=== PATIENT | male | born 1935 | race Two or more races ===

== ENCOUNTER 2022-02-08 12:02 | Observation (INO) ==
[2022-02-08] MEDS ORDERED: SODIUM CHLORIDE 0.9% 1000ML 1,000 ML IV STA (12:19)
[2022-02-08] MEDS ORDERED: SODIUM CHLORIDE 0.9% 500 ML IV ONE (12:39)
[2022-02-08 12:55] LABS: Hematocrit (blood only) 36.4 % (40.1-51.0); Hemoglobin 12.1 g/dl (14.0-18.0); White Blood Count 2.12 K/ul (4.8-10.8)
--- NOTE | 2022-02-08 13:03 | XRay Report ---
XR chest 1V portable HISTORY: Fever COMPARISON: None. FINDINGS: No pneumothorax. No pleural effusions. The heart is normal in size. The upper lung zones ar e clear. There is patchy interstitial thickening at the lung bases. There are low lung volumes. No ev idence for pulmonary edema. IMPRESSION: Bibasilar interstitial thickening which may be due to vascular crowding from the low lung volumes or a low-grade interstitial pneumonitis. ACT 112: Negative or not required by law. Electronically signed by: Christiano Beltran M.D. 02/08/2022 1:01 PM
[2022-02-08 13:15] LABS: Alanine Aminotransferase 7 U/L (7-52); Albumin Globulin Ratio 1.4 (0.9-2); Albumin Level 3.7 gm/dl (3.4-5.0); Alkaline Phosphatase 48 U/L (34-104); Anion Gap 7 (3-11); Aspartate Aminotransferase 14 U/L (13-39); BUN Creatinine Ratio 10.7 (10-20); Bilirubin,Total 0.4 mg/dl (0.2-1.0); Blood Urea Nitrogen 13 mg/dl (6-23); Calcium 8.3 mg/dl (8.5-10.1); Carbon Dioxide 26 mmol/L (21-32); Chloride 103 mmol/L (98-107); Est GFR (African American) 62.9 ml/min; Est GFR (Non-African American) 54.3 ml/min; Globulin 2.6 gm/dl (2.5-4.0); Glucose 103 mg/dl (70-99(Fasting)); Potassium 3.9 mmol/L (3.5-5.1); Sodium 136 mmol/L (136-145); Total Protein 6.3 gm/dl (6.0-8.3)
[2022-02-08 13:18] LABS: Troponin I High Sensitivity 26.8 pg/ml (0-20)
[2022-02-08 13:24] LABS: Influenza A virus by PCR Negative (Neg); Influenza B virus by PCR Negative (Neg); RSV by PCR Negative (Neg)
[2022-02-08 13:40] LABS: Mean Corpuscular Hemoglobin 30.9 pg (25.0-34.0); Mean Corpuscular Hgb Conc 33.2 g/dL (32.0-36.0); Mean Corpuscular Volume 93.1 fL (80.0-100.0); Mean Platelet Volume 9.7 fL (9.4-12.4); Platelet Count 111 K/uL (130-400); RDW Coefficient of Variation 13.2 % (11.5-14.5); RDW Standard Deviation 45.1 fL (36.4-46.3); Red Blood Count 3.91 M/uL (4.63-6.08)
[2022-02-08 14:08] LABS: RBC Morphology Unremarkable
[2022-02-08 14:11] LABS: Basophils # (auto) 0.01 K/uL (0-0.2); Basophils % (auto) 0.5 %; Lymphocytes # (auto) 0.72 K/uL (1.2-3.4); Monocytes # (auto) 0.57 K/uL (0.24-0.82); Monocytes % (auto) 26.9 %; Neutrophils # (auto) 0.82 K/uL (1.4-6.5); Neutrophils % (auto) 38.6 %
[2022-02-08 14:36] LABS: SARS CoV2 RNA(COVID-19) InHosp POSITIVE (Negative)
--- NOTE | 2022-02-08 14:57 | History & Physical Report ---
Date of Service February 08, 2022 Assessment & Plan (1) COVID: Plan: - 2 days of generalized weakness, subjective fevers at home, with known exposure to his who was hospitalized here with COVID. Unable to care for self at home. - He has vaccinated x2 with booster May. - SPO2 >90% on room air, mildly hypertensive, HR 70s. Afebrile here. - Provide symptomatic care: IVF hydration, Tylenol for body aches and fever, antiemetics, Tessalon Perles prn. - CXR with bibasilar interstitial thickening +/- pneumonitis. - CT chest w/o contrast ordered for further eval. - PT/OT to evaluate. - TSH, procal added on to labs. - Monitor pancytopenia with daily CBC. (2) Pancytopenia: Plan: - 2/2 COVID-19 infection, no ported history of immunosuppression. - Repeat CBC daily. (3) Elevated troponin: Plan: - Initial hs Trop 26.8, repeat 26.7. EKG with LBBB which may be chronic, however we do not have any prior records for patient. He is not experiencing any chest pain, shortness of breath, dizziness, lightheadedness, diaphoresis. - Admitted to telemetry unit overnight. - Echo and repeat trop ordered. - Did get in touch with [place] PCP, patient is currently on a statin for high cholesterol, has reported history of pulmonary hypertension and cardiomegaly, however no echoes in their records. LBBB seen on prior EKGs per the report. (4) AFTAB (acute kidney injury): Plan: - Cr 1.21, no baseline labs for comparison, did get in contact with her PCP, no specific notes of CKD. - Will provide IVF and repeat BMP in AM. Suspect at his age there is some degree of CKD, will monitor response to IVF, renal function while he is here to determine an estimated baseline. - Avoid nephrotoxins and renally dose as able. (5) BPH (benign prostatic hyperplasia): Plan: - Continue finasteride 5 mg and doxazosin 2 mg daily. - Bladder scan after voids to monitor for PVR. (6) Hyperlipidemia: Plan: - Continue atorvastatin 20 mg daily. Plan - Med/tele under observtion status. - SCDs and Lovenox for VTE ppx. - Full Code. History of Present Illness Chief Complaint: weakness, COVID-19 infection Primary Care Provider: NO PCP Colt Kaminski is an 86-year-old male with a past medical history significant for BPH and hyperlipidemia, who is presenting today with generalized weakness ongoing for the past 2 days. History collected with the assistance of virtual caustic room attendant, as well as daughter at bedside who does speak Moh[place] and translates for her father. Patient is actually a [place] resident visiting, is Prydeinig-speaking and unable to provide much in the way of past medical history. His was hospitalized at our facility yesterday, 02/07 with COVID-19 infection. He has been feeling generally weak over the past 2 days, specifically in his knees as if they would give out on him, although has not had any falls at home. He has not had any fevers, chest pain, cough, shortness of breath, syncope, presyncope, dizziness, lightheadedness, diaphoresis, abdominal pain, nausea, vomiting, diarrhea. He is doing his best to stay hydrated and to eat. He is vaccinated x2 with Pfizer booster in May 2021. His tested positive for the first time yesterday, and today he is positive.No home tests prior to ED presentation. In ED, he presents tachycardic with HR 102, initially borderline hypotensive 90/50, after IVF@133/59, SPO2 90% on room air, afebrile here. Labs significant for pancytopenia, WBC 2.2 with decreased neutrophil count 0.82, RBC 2.91, Hgb 12.1, PLTs 111. Creatinine 1.21, no baseline labs for reference. Calcium mildly low at 8.3, otherwise no electrolyte abnormalities. Initial hsTrop 26.8, repeat 26.7. COVID-positive. CXR with bibasilar interstitial thickening which may be due to vascular crowding from the low lung volumes or a low-grade interstitial pneumonitis. He will be admitted for symptomatic treatment of his COVID-19 infection, on telemetry unit given his mildly elevated troponin with LBBB seen on EKG with no prior EKGs for reference. Attempts are being made to collect basic PMH. Allergies Allergy/AdvReac Type Severity Reaction Status Date / Time No Known Allergies Allergy Verified 02/08/22 15:43 Home Medications Medication Instructions Recorded Confirmed Type Unknown Antibiotic 1 tab PO DIRECTED 02/08/22 02/08/22 History atorvastatin 20 mg tablet 20 mg PO DAILY 02/08/22 02/08/22 History doxazosin 2 mg PO DAILY 02/08/22 02/08/22 History finasteride 5 mg tablet 5 mg PO DAILY 02/08/22 02/08/22 History Past Med/Surg History Medical History (Updated 02/08/22 @ 16:10 by Radha Frazier PA-C) BPH (benign prostatic hyperplasia) Cardiomegaly COVID February 2022 Hyperlipidemia LBBB (left bundle branch block) Surgical History (Updated 02/08/22 @ 15:46 by Radha Frazier PA-C) Surgical history unknown Family History (Updated 02/08/22 @ 15:47 by Radha Frazier PA-C) Other Family history non-contributory Social History Smoking Status: Never smoker Feels Safe at Home: Yes Review of Systems Review of Systems: Constitutional: Generalized weakness x2 days without fall; no fever/chills, fatigue, myalgias, anorexia, night sweats Eyes: No diplopia, no worsening or blurred vision ENT: normal hearing, no trouble swallowing Respiratory: No cough, sputum, dyspnea at rest or on exertion Cardiovascular: No chest pain, tightness or palpitations Abdomen: No pain, nausea, vomiting, diarrhea or constipation : Denies dysuria, hematuria, increased urgency/frequency, urinary retention Musculoskeletal: No joint pain, calf pain, swelling Neurologic: No weakness, numbness/tingling, or balance problems Psychiatric: No anxiety or depression Skin: No rash or itch Physical Exam Physical Exam: General: awake, alert, no apparent distress Head: Normocephalic, atraumatic ENT: PERRL, EOMI, no pharyngeal exudate, mucous membranes moist Chest: Clear to auscultation, on room air, no adventitious breath sounds Cardiac: Regular rate and rhythm, no murmur, no JVD, normal peripheral pulses, good capillary refill Abdominal: NABS x 4 quadrants, soft, nontender to palpation, no rebound, guarding or tenderness Extremities: Normal inspection, no peripheral edema or erythema, calfs nontender to palpation Psych: Normal mood and affect Neuro: AAO x 3, strength intact bilaterally and rated 5/5, no motor deficits, speech is clear, no peripheral sensory deficits Skin: no rash or erythema Results & Data Results & Data ([facility]) Vital Signs (Past 12 Hours) Vital Signs Temp Pulse Resp BP BP Pulse Ox O2 Del Method 02/08/22 13:23 19 133/59 L 91 Room Air 02/08/22 12:06 37.0 C 102 H 18 92/58 L 95 Room Air Laboratory Results Abnormal lab results 02/08/22 02/08/22 02/08/22 Range/Units 12:36 12:36 12:38 WBC 2.12 L (4.8-10.8) K/ul RBC 3.91 L (4.63-6.08) M/uL Hgb 12.1 L (14.0-18.0) g/dl Hct 36.4 L (40.1-51.0) % Plt Count 111 L (130-400) K/uL Neut # (Auto) 0.82 L* (1.4-6.5) K/uL Lymph # (Auto) 0.72 L (1.2-3.4) K/uL Glucose 103 H (70-99(Fasting)) mg/dl Calcium 8.3 L (8.5-10.1) mg/dl Troponin I High Sens 26.8 H (0-20) pg/ml SARS-CoV-2 (PCR) POSITIVE A* (Negative) 02/08/22 Range/Units 14:23 WBC (4.8-10.8) K/ul RBC (4.63-6.08) M/uL Hgb (14.0-18.0) g/dl Hct (40.1-51.0) % Plt Count (130-400) K/uL Neut # (Auto) (1.4-6.5) K/uL Lymph # (Auto) (1.2-3.4) K/uL Glucose (70-99(Fasting)) mg/dl Calcium (8.5-10.1) mg/dl Troponin I High Sens 26.7 H (0-20) pg/ml SARS-CoV-2 (PCR) (Negative) Diagnostic Findings Chest X-Ray 02/08/22 12:19 XR chest 1V portable HISTORY: Fever COMPARISON: None. FINDINGS: No pneumothorax. No pleural effusions. The heart is normal in size. The upper lung zones are clear. There is patchy interstitial thickening at the lung bases. There are low lung volumes. No evidence for pulmonary edema. IMPRESSION: Bibasilar interstitial thickening which may be due to vascular crowding from the low lung volumes or a low-grade interstitial pneumonitis. ACT 112: Negative or not required by law. Electronically signed by: Christiano Beltran M.D. 02/08/2022 1:01 PM ECG Additional Comments: Normal sinus rhythm Left bundle branch block Abnormal ECG No previous ECGs available. No ST segment or T wave changes noted. Code Status & VTE Plan Code Status Full code. Supervising Physician Co-Signing Physician Notes Patient seen and examined, chart reviewed, case discussed with Radha Frazier PA-C and I agree with the assessment and plan as above except as otherwise noted. Labs and images reviewed. Bhupinder is an 86-year-old male who denies any past medical history who presents with weakness, fatigue and COVID-positive. His is currently admitted also with COVID. With subsequent patient's heart rate is regular, lungs are grossly clear with nonlabored breathing on room air, patient is nondistressed. Hearing and vision intact, pupils exclusively Prydeinig-speaking. Seen at the bedside with daughter present. He is a poor historian of medications, collateral obtained from his PCPs office in [facility] Weakness 2/2 COVID-19 pneumonia - 2 days of sx. No cough, shortness of breath, chest pain, chest pressure, N/V/D. - Vaccinated/boosted, last booster May 2022. Is not hypoxic, does not meet criteria for dexamethasone or remdesivir at this time CXR: Bibasilar interstitial thickening,? Interstitial pneumonitis Sodium normal, creatinine 1.21 TSH pending Troponin elevation ? Demand as discussed below Patient is neutropenic and thrombocytopenic, hemoglobin 12.1. No history of thrombocytopenia/neutropenia per patient. Differential includes viral suppression, trend daily COVID-positive 02/08/2022 CTchest noncontrast pending PT/OT, CM consulted Procalcitonin pending Left bundle branch block, mild troponin elevation EKG with left bundle branch block, QRS 122 - Per Pts [place] Provider: "Recent EKG August w/ LBBB QRs 120-125, LBBB has been present on prior EKGs and is not new. Medications: Atorvastatin 20mg, Finasteride 5mg, Doxazosin 2mg, Diclofinac 75mg Dx: HLD, Cardiomegaly, Prostatomegaly, pHTN - Echo ordered by PCP, no results and was never completed. No hx of OK/CAD." High-sensitivity troponin 26.8 with repeat 26.7 Clinically without chest pain. No history of syncope. TTE pending. Denies medical/cardiac history. Lipid panel, A1c pending Monitor on telemetry pending cardiac eval above. - Mg pending Neutropenia, leukopenia, anemia Hemoglobin 12.1 Neutropenic precautions No history, differential includes viral suppression in setting of acute COVID Trend BPH - Bladder scan PRN - Continue doxazosin, finasteride PG Care Time/CCT Total # of Minutes Spent Total Time Spent with Patient: Total time spent is greater than 50% in coordination of care (as documented) at patient's floor/unit and/or counseling patient: Coding Level of Care Code INT OBSERVATION CARE 70M LVL 3 Diagnoses COVID U07.1 Pancytopenia D61.818 Elevated troponin R77.8 AFTAB (acute kidney injury) N17.9 BPH (benign prostatic hyperplasia) N40.0 Hyperlipidemia E78.5
--- NOTE | 2022-02-08 16:57 | CT Scan Report ---
CT chest diagnostic wo con CT DOSE: 325.52 mGycm HISTORY: fever, COVID-19, borderline hypoxic TECHNIQUE: Multiaxial CT images of the chest were performed without contrast. A dose lowering techni que was utilized adhering to the principles of ALARA. COMPARISON: None. FINDINGS: The central airways are patent. No pneumothorax. Mild respiratory motion artifact. Mild dep endent changes noted at the lung bases. Otherwise, no focal lung consolidations to suggest pneumonia. No evidence for pulmonary edema. There are few scattered subcentimeter indeterminate pulmonary nodul es with the largest in the left upper lobe on image 69 measuring 4 mm. No suspicious lytic or blastic osseous lesions. Mild bilateral gynecomastia most pronounced on the left. Limited views of the upper abdomen demonstrate a normal liver, spleen, and adrenal glands. Normal esophagus. There appear to be trace bilateral pleural effusions. No pericardial effusion. The heart is mildly enlarged. Normal sid iber thoracic aorta. IMPRESSION: 1. No focal lung consolidations to suggest pneumonia. 2. Trace bilateral pleural effusions. 3. Mild cardiomegaly. 4. A few scattered subcentimeter indeterminate pulmonary nodules measure up to 4 mm. Please refer to below summary of Fleischner criteria recommendations for follow-up of incidental CT n odules (Aditya Reardon, Guidelines for management of small pulmonary nodules detected on CT scans: A sta tement from the Fleischner Society, Radiology 237: [phone].) SOLID NODULES Solitary nodule size: <6 mm * Low risk patients: no follow-up needed * high risk patients: optional CT at 12 months Solitary nodule size: 6-8 mm * Low risk patients: follow-up at 6-12 months, then consider further follow-up at 18-24 months * high risk patients: initial follow-up CT at 6-12 months and then at 18-24 months if no change Solitary nodule size: >8 mm * either low or high risk patients - consider follow-up CT at 3 months, and/or CT-PET, and/or biopsy Multiple nodules size: <6 mm * Low risk patients: no routine follow-up * high risk patients: optional CT at 12 months Multiple nodules size: 6-8 mm * Low risk patients: follow-up at 3-6 months, then consider further follow-up at 18-24 months * high risk patients: follow-up at 3-6 months, then at 18-24 months if no change Multiple nodules size: >8 mm * Low risk patients: follow-up at 3-6 months, then consider further follow-up at 18-24 months * high risk patients: follow-up at 3-6 months, then at 18-24 months if no change Note: newly detected indeterminate nodule in persons 35 years of age or older. * Low risk patients: minimal or absent history of smoking and/or other known risk factors * high risk patients: history of smoking or of other known risk factors (e.g. first degree relative with lung cancer, or exposure to asbestos, radon, uranium) * if a nodule up to 8 mm is partly solid or is ground glass further follow-up is required after 24 m onths to exclude possible slow growing adenocarcinoma (MARK) SUBSOLID NODULES Solitary pure ground-glass nodule * nodule size <6 mm - no CT follow-up required * nodule size >=6 mm - follow-up CT at 6-12 months, then every 2 years until 5 years Solitary part-solid nodule * nodule size <6 mm - no CT follow-up required * nodule size >=6 mm - follow-up CT at 3-6 months. If unchanged, and solid component remains <6 mm, then annual follow-up for 5 years Multiple subsolid nodules * nodule size <6 mm - follow-up CT at 3-6 months, consider further follow-up at 2 and 4 years if sta ble * nodule size >=6 mm - follow-up CT at 3-6 months, subsequent management based on the most suspiciou s nodule(s) ACT 112: Negative or not required by law. Electronically signed by: Christiano Beltran M.D. 02/08/2022 4:55 PM
[2022-02-08 17:25] LABS: Appearance Urine Clear (Clear); Bacteria Urine Automated Negative (Negative); Bilirubin Urine Negative (Negative); Blood Urine 2+ (Negative); Color Urine Yellow; Glucose Urine UA Negative (Negative); Ketones Urine Negative (Negative); Leukocyte Esterase Urine Negative (Negative); Nitrite Urine Negative (Negative); Protein Urine Negative (Negative); RBC Urine Automated 0-4 /hpf (0-4); Specific Gravity Urine 1.011 (1.000-1.030); Urobilinogen Urine Negative (Negative)
[2022-02-08] MEDS ORDERED: ACETAMINOPHEN 325 MG TAB PO PRN (19:30)
[2022-02-08] MEDS ORDERED: POLYETHYLENE (MIRALAX) 17 GM PACK PO PRN (19:30)
[2022-02-08 20:22] LABS: Magnesium 1.8 mg/dl (1.7-2.4)
[2022-02-08] MEDS: ENOXAPARIN INJ 40 MG/0.4 ML SYR SQ SCH (20:33)
[2022-02-08] MEDS: Patient's HEIGHT &/or WEIGHT Needed SCH ×2 (21:04→21:07)
[2022-02-09] MEDS: Patient's HEIGHT &/or WEIGHT Needed SCH ×7 (00:53→16:32)
[2022-02-09 05:53] LABS: Basophils # (auto) 0.01 K/uL (0-0.2); Basophils % (auto) 0.3 %; Hematocrit (blood only) 37.6 % (40.1-51.0); Hemoglobin 12.7 g/dl (14.0-18.0); Immature Granulocytes # (auto) 0.01 K/uL (0.00-0.02); Immature Granulocytes % (auto) 0.3 %; Lymphocytes # (auto) 0.98 K/uL (1.2-3.4); Lymphocytes % (auto) 32.5 %; Mean Platelet Volume 10.1 fL (9.4-12.4); Monocytes # (auto) 0.58 K/uL (0.24-0.82); Monocytes % (auto) 19.2 %; Neutrophils # (auto) 1.44 K/uL (1.4-6.5); Neutrophils % (auto) 47.7 %; Platelet Count 107 K/uL (130-400); White Blood Count 3.02 K/ul (4.8-10.8)
[2022-02-09 06:06] LABS: Mean Corpuscular Hgb Conc 33.8 g/dL (32.0-36.0); Mean Corpuscular Volume 91.7 fL (80.0-100.0); RDW Coefficient of Variation 13.1 % (11.5-14.5); RDW Standard Deviation 43.8 fL (36.4-46.3)
[2022-02-09 06:12] LABS: BUN Creatinine Ratio 12.2 (10-20); Chol HDL Ratio 3.3 (0-5); Creatinine Clr Calc Pharmacy 55.5 ml/min; Est GFR (African American) 81.2 ml/min; Potassium 4.1 mmol/L (3.5-5.1)
--- NOTE | 2022-02-09 09:17 | Electrocardiogram Report ---
Test Reason : Blood Pressure : / mmHG Vent. Rate : 073 BPM Atrial Rate : 073 BPM P-R Int : 132 ms QRS Dur : 122 ms QT Int : 408 ms P-R-T Axes : 052 -29 097 degrees QTc Int : 449 ms Normal sinus rhythm Left bundle branch block Abnormal ECG No previous ECGs available Confirmed by Brannon Sneed ([id number]) on 02/09/2022 9:17:45 AM Referred By: Confirmed By:Brannon Sneed
[2022-02-09] MEDS: ATORVASTATIN 20 MG TAB PO SCH (09:45)
[2022-02-09] MEDS: DOXAZosin MESYLATE TAB 2 MG TAB PO SCH (09:45)
[2022-02-09] MEDS: FINASTERIDE 5 MG TAB PO SCH (09:46)
[2022-02-09] MEDS: ENOXAPARIN INJ 40 MG/0.4 ML SYR SQ SCH ×2 (09:46→21:18)
--- NOTE | 2022-02-09 17:09 | Emergency Department Note ---
Impression & Plan COVID, Pancytopenia, Elevated troponin, LBBB (left bundle branch block) ED Provider Note CHIEF COMPLAINT: Fever HISTORY OF PRESENT ILLNESS: This 86 yo male patient presents to the emergency de partment with increase sleeping, fever. Pt was exposed to COVID 19 through a family member, trying to help care for his after she had surgery recently. was readmitted to the hospital and diagnosed with COVID-19 yesterday. Daughter noticed a decrease in his mental status, he has not drink and has been sleeping most of the day. He does have an occasional cough and she has noticed that he felt warm. He has not taken any medications for his symptoms. His been no vomiting or diarrhea. The patient recently moved to our area and daughter states she does not know much about his past medical history. She does not believe he takes any medications. Patient is Beninese-speaking somnolent but awake, answers REVIEW OF SYSTEMS: A review of systems was performed with positives and pert inent negatives listed in the history of present illness. 10 systems were reviewed and are otherwise negative. ALLERGIES: see below MEDICATIONS: see below PMH: see below SOCIAL HISTORY: see below DDx: Viral syndrome, COVID, influenza, pneumonia, influenza, meningitis, urinary tract infection, sepsis, bacteremia, as well as other pathologies. PHYSICAL EXAM: Vital signs reviewed. General: Somewhat ill-appearing 86-year-old male, in no significant distress. HEENT: No scleral icterus, PERRLA, neck supple. Dry mucous membranes. Cardiovascular: Regular rate and rhythm, no extra sounds. Pulmonary: Clear to auscultation bilaterally, normal work of breathing. Abdomen: Soft, nontender, nondistended, positive bowel sounds. Musculoskeletal: Atraumatic, no peripheral edema. Neurologic: Patient is somnolent but awake. He does answer questions through cyber systems operations specialist. Follows commands. Skin: Warm, dry, no rash EMERGENCY DEPARTMENT COURSE/MDM: This patient was evaluated and appeared to be in no significant distress. IV access was obtained and laboratory work was drawn. Patient was placed on the nuclear monitoring technician and noted to be in a normal sinus rhythm. Laboratory work reveals a leukopenia with neutropenia. The patient was hydrated with normal saline solution. Urinalysis was obtained and was negative. He has tested positive for COVID-19, which I feel is likely responsible for his laboratory derangements. Patient's EKG reveals a left bundle branch block for which we have no previous EKGs to compare.. Daughter is concerned that he has limited care at home, particularly because his is ill and family is having difficulty themselves. The patient will be evaluated by the hospitalist service for further management. MONITORING: An order for cardiac monitoring was placed and the patient is noted to be in a normal sinus rhythm at 74 beats per minute. RADIOLOGY: See below EKG: Normal sinus rhythm at 73 bpm, left bundle branch block. QTc is 449. No PVC, no PAC. Normal ST segments. No previous for comparison. DISPOSITION: Admission Past Med/Surg History Medical History (Updated 02/16/22 @ 23:20 by Radha Meade MD) BPH (benign prostatic hyperplasia) Cardiomegaly COVID February 2022 Hyperlipidemia LBBB (left bundle branch block) Surgical History (Updated 02/08/22 @ 15:46 by Radha Frazier PA-C) Surgical history unknown Family History (Updated 02/08/22 @ 15:47 by Radha Frazier PA-C) Other Family history non-contributory Social History Smoking Status: Former smoker Second Hand Exposure: No; Hx Alcohol Use: No Hx Substance Use: No Preferred Language: Beninese Communication Ability: Impaired Communication Tools: Picture Board and Panel Sewer Cards Air Carrier Operations Inspector Required: Yes Beliefs That Will Affect Care: None Current Living Situation: Spouse Feels Safe at Home: Yes Assistive Devices: None Allergies Allergies Allergy/AdvReac Type Severity Reaction Status Date / Time No Known Allergies Allergy Verified 02/08/22 15:43 Home Meds Home Medications Medication Instructions Recorded Confirmed atorvastatin 20 mg tablet 20 mg PO DAILY 02/08/22 02/08/22 doxazosin 2 mg PO DAILY 02/08/22 02/08/22 finasteride 5 mg tablet 5 mg PO DAILY 02/08/22 02/08/22 Results & Data (ED) Home Medications Current Medication List: was personally reviewed by me Laboratory Data Attestation: I reviewed the patient's lab results. Result diagrams: 02/10/22 07:39 02/10/22 07:39 Lab Results 02/08/22 02/08/22 02/08/22 Range/Units 12:36 12:36 12:36 WBC 2.12 L (4.8-10.8) K/ul RBC 3.91 L (4.63-6.08) M/uL Hgb 12.1 L (14.0-18.0) g/dl Hct 36.4 L (40.1-51.0) % MCV 93.1 (80.0-100.0) fL MCH 30.9 (25.0-34.0) pg MCHC 33.2 (32.0-36.0) g/dL RDW Std Deviation 45.1 (36.4-46.3) fL RDW Coeff of Jeanette 13.2 (11.5-14.5) % Plt Count 111 L (130-400) K/uL MPV 9.7 (9.4-12.4) fL Immature Gran % (Auto) 0.0 % Neut % (Auto) 38.6 % Lymph % (Auto) 34.0 % Moffat % (Auto) 26.9 % Eos % (Auto) 0.0 % Baso % (Auto) 0.5 % Neut # (Auto) 0.82 L* (1.4-6.5) K/uL Lymph # (Auto) 0.72 L (1.2-3.4) K/uL Moffat # (Auto) 0.57 (0.24-0.82) K/uL Eos # (Auto) 0.00 (0-0.50) K/uL Baso # (Auto) 0.01 (0-0.2) K/uL Immature Gran # (Auto) 0.00 (0.00-0.02) K/uL RBC Morphology Unremarkable Sodium 136 (136-145) mmol/L Potassium 3.9 (3.5-5.1) mmol/L Chloride 103 (98-107) mmol/L Carbon Dioxide 26 (21-32) mmol/L Anion Gap 7 (3-11) BUN 13 (6-23) mg/dl Creatinine 1.21 (0.6-1.4) mg/dl Est Cr Clr Drug Dosing Not Reportable Est GFR ( Amer) 62.9 ml/min Est GFR (Non-Af Amer) 54.3 ml/min BUN/Creatinine Ratio 10.7 (10-20) Glucose 103 H (70-99(Fasting)) mg/dl Estimat Average Glucose mg/dl Hemoglobin A1c (4.5-5.6) % Lactate 0.9 (0.4-2.0) mmol/L Calcium 8.3 L (8.5-10.1) mg/dl Magnesium 1.8 (1.7-2.4) mg/dl Total Bilirubin 0.4 (0.2-1.0) mg/dl AST 14 (13-39) U/L ALT 7 (7-52) U/L Alkaline Phosphatase 48 (34-104) U/L Troponin I High Sens 26.8 H (0-20) pg/ml Total Protein 6.3 (6.0-8.3) gm/dl Albumin 3.7 (3.4-5.0) gm/dl Globulin 2.6 (2.5-4.0) gm/dl Albumin/Globulin Ratio 1.4 (0.9-2) Procalcitonin (0-0.5) ng/ml TSH (0.300-4.500) uIu/ml SARS-CoV-2 (PCR) (Negative) Influenza Type A (PCR) (Neg) Influenza Type B (PCR) (Neg) RSV (RT-PCR) (Neg) 02/08/22 02/08/22 02/08/22 Range/Units 12:36 12:36 12:38 WBC (4.8-10.8) K/ul RBC (4.63-6.08) M/uL Hgb (14.0-18.0) g/dl Hct (40.1-51.0) % MCV (80.0-100.0) fL MCH (25.0-34.0) pg MCHC (32.0-36.0) g/dL RDW Std Deviation (36.4-46.3) fL RDW Coeff of Jeanette (11.5-14.5) % Plt Count (130-400) K/uL MPV (9.4-12.4) fL Immature Gran % (Auto) % Neut % (Auto) % Lymph % (Auto) % Moffat % (Auto) % Eos % (Auto) % Baso % (Auto) % Neut # (Auto) (1.4-6.5) K/uL Lymph # (Auto) (1.2-3.4) K/uL Moffat # (Auto) (0.24-0.82) K/uL Eos # (Auto) (0-0.50) K/uL Baso # (Auto) (0-0.2) K/uL Immature Gran # (Auto) (0.00-0.02) K/uL RBC Morphology Sodium (136-145) mmol/L Potassium (3.5-5.1) mmol/L Chloride (98-107) mmol/L Carbon Dioxide (21-32) mmol/L Anion Gap (3-11) BUN (6-23) mg/dl Creatinine (0.6-1.4) mg/dl Est Cr Clr Drug Dosing Est GFR ( Amer) ml/min Est GFR (Non-Af Amer) ml/min BUN/Creatinine Ratio (10-20) Glucose (70-99(Fasting)) mg/dl Estimat Average Glucose mg/dl Hemoglobin A1c (4.5-5.6) % Lactate (0.4-2.0) mmol/L Calcium (8.5-10.1) mg/dl Magnesium (1.7-2.4) mg/dl Total Bilirubin (0.2-1.0) mg/dl AST (13-39) U/L ALT (7-52) U/L Alkaline Phosphatase (34-104) U/L Troponin I High Sens (0-20) pg/ml Total Protein (6.0-8.3) gm/dl Albumin (3.4-5.0) gm/dl Globulin (2.5-4.0) gm/dl Albumin/Globulin Ratio (0.9-2) Procalcitonin < 0.05 (0-0.5) ng/ml TSH 0.852 (0.300-4.500) uIu/ml SARS-CoV-2 (PCR) POSITIVE A* (Negative) Influenza Type A (PCR) Negative (Neg) Influenza Type B (PCR) Negative (Neg) RSV (RT-PCR) Negative (Neg) 02/08/22 02/08/22 Range/Units 12:43 14:23 WBC (4.8-10.8) K/ul RBC (4.63-6.08) M/uL Hgb (14.0-18.0) g/dl Hct (40.1-51.0) % MCV (80.0-100.0) fL MCH (25.0-34.0) pg MCHC (32.0-36.0) g/dL RDW Std Deviation (36.4-46.3) fL RDW Coeff of Jeanette (11.5-14.5) % Plt Count (130-400) K/uL MPV (9.4-12.4) fL Immature Gran % (Auto) % Neut % (Auto) % Lymph % (Auto) % Moffat % (Auto) % Eos % (Auto) % Baso % (Auto) % Neut # (Auto) (1.4-6.5) K/uL Lymph # (Auto) (1.2-3.4) K/uL Moffat # (Auto) (0.24-0.82) K/uL Eos # (Auto) (0-0.50) K/uL Baso # (Auto) (0-0.2) K/uL Immature Gran # (Auto) (0.00-0.02) K/uL RBC Morphology Sodium (136-145) mmol/L Potassium (3.5-5.1) mmol/L Chloride (98-107) mmol/L Carbon Dioxide (21-32) mmol/L Anion Gap (3-11) BUN (6-23) mg/dl Creatinine (0.6-1.4) mg/dl Est Cr Clr Drug Dosing Est GFR ( Amer) ml/min Est GFR (Non-Af Amer) ml/min BUN/Creatinine Ratio (10-20) Glucose (70-99(Fasting)) mg/dl Estimat Average Glucose 120 mg/dl Hemoglobin A1c 5.8 H (4.5-5.6) % Lactate (0.4-2.0) mmol/L Calcium (8.5-10.1) mg/dl Magnesium (1.7-2.4) mg/dl Total Bilirubin (0.2-1.0) mg/dl AST (13-39) U/L ALT (7-52) U/L Alkaline Phosphatase (34-104) U/L Troponin I High Sens 26.7 H (0-20) pg/ml Total Protein (6.0-8.3) gm/dl Albumin (3.4-5.0) gm/dl Globulin (2.5-4.0) gm/dl Albumin/Globulin Ratio (0.9-2) Procalcitonin (0-0.5) ng/ml TSH (0.300-4.500) uIu/ml SARS-CoV-2 (PCR) (Negative) Influenza Type A (PCR) (Neg) Influenza Type B (PCR) (Neg) RSV (RT-PCR) (Neg) Administered Medications Discontinued Medications Atorvastatin Calcium (Atorvastatin 20 Mg Tab) 20 mg PO DAILY LUIS Stop: 03/11/22 08:59 Last Admin: 02/10/22 07:43 Dose: 20 mg Documented By: Admin: 02/09/22 09:45 Dose: 20 mg Documented By: ROWENA Doxazosin Mesylate (Doxazosin Mesylate Tab 2 Mg Tab) 2 mg PO DAILY LUIS Stop: 03/11/22 08:59 Last Admin: 02/10/22 07:43 Dose: 2 mg Documented By: Admin: 02/09/22 09:45 Dose: 2 mg Documented By: ROWENA Enoxaparin Sodium (Enoxaparin Inj 40 Mg/0.4 Ml Syr) 40 mg SQ Q12H LUIS Stop: 03/10/22 19:59 Last Admin: 02/10/22 07:41 Dose: 40 mg Documented By: Admin: 02/09/22 21:18 Dose: 40 mg Documented By: Admin: 02/09/22 09:46 Dose: 40 mg Documented By: Admin: 02/08/22 20:33 Dose: 40 mg Documented By: SHANICE Finasteride (Finasteride 5 Mg Tab) 5 mg PO DAILY LUIS Stop: 03/11/22 08:59 Last Admin: 02/10/22 07:43 Dose: 5 mg Documented By: Admin: 02/09/22 09:46 Dose: 5 mg Documented By: ROWENA Sodium Chloride (Nss 1000ml) 1,000 mls @ 125 mls/hr IV .Q8H STA Stop: 02/08/22 20:18 Last Admin: 02/08/22 19:54 Dose: Not Given Documented By: SHANICE Sodium Chloride (Nss) 500 mls @ 999 mls/hr IV .Q31M ONE Stop: 02/08/22 13:09 Last Infusion: 02/08/22 13:35 Dose: 0 mls/hr Documented By: Admin: 02/08/22 12:56 Dose: 999 mls/hr Documented By: ELIZABETH Miscellaneous (Patient's Height &/Or Weight Needed) 1 each N/A Q2H LUIS Stop: 03/10/22 19:44 Last Admin: 02/09/22 16:32 Dose: Not Given Documented By: Admin: 02/09/22 16:32 Dose: Not Given Documented By: Admin: 02/09/22 16:32 Dose: Not Given Documented By: Admin: 02/09/22 16:32 Dose: Not Given Documented By: Admin: 02/09/22 09:46 Dose: Not Given Documented By: Admin: 02/09/22 09:45 Dose: 1 each Documented By: Admin: 02/09/22 05:30 Dose: Not Given Documented By: Admin: 02/09/22 04:04 Dose: Not Given Documented By: Admin: 02/09/22 02:38 Dose: Not Given Documented By: Admin: 02/09/22 00:53 Dose: Not Given Documented By: Admin: 02/08/22 21:07 Dose: 1 each Documented By: Admin: 02/08/22 21:04 Dose: Not Given Documented By: Discharge Plan Visit Data Chief Complaint: Fever Stated Complaint: FEVER,COVID EXPOSURE ED Provider: Radha Meade Discharge Problem: COVID, Pancytopenia, Elevated troponin, LBBB (left bundle branch block) Patient Disposition: Admitted As Inpatient Discharge Instructions Interventions: ED Discharge Assessment Last Done: 02/08/22 17:38
--- NOTE | 2022-02-09 20:55 | Hospitalist Progress Note ---
Date of Service February 09, 2022 Assessment & Plan (1) COVID: Plan: Day #3 of his illness. Most symptoms improved today. No hypoxia, no respiratory symptoms. He has vaccinated x2 with booster May 2021. No indication at this time for Remdesivir or Dexamethasone. Symptomatic care. Await echo. Cont airborne precautions. (2) Pancytopenia: Plan: 2nd COVID-19 infection. Typically self-limiting. Daily CBC while here. (3) Elevated troponin: Plan: Admission attending did contact his PCP in [place]. Per his PCP in [place] -- currently on a statin for high cholesterol; history of pulmonary hypertension and cardiomegaly; no h/o CAD. PCP denies seeing an echo in his chart there. LBBB seen on old EKGs which is reassuring this is NOT acute. Await echo here. (4) AFTAB (acute kidney injury): Plan: Improved. 2nd volume depletion. Can stop IV fluids. Diet as tolerated. (5) BPH (benign prostatic hyperplasia): Plan: Continue finasteride 5 mg and doxazosin 2 mg daily. (6) Hyperlipidemia: Plan: Continue atorvastatin 20 mg daily. Plan DVT proph - lovenox BID Dr Oneil from our hospitalist team is caring for the patient's who remains on our 3rd floor likely d/c home tomorrow if echo is wnl Admission and Anticipated Discharge Date Admission Date: February 08, 2022 Subjective via supervisor pipe joints -- patient denies ALL complaints including dizziness, headache, nausea, emesis, cough, dyspnea, weakness/fatigue, fevers/chills he states his is in the hospital and inquires about her has been in [place] x 2 weeks visiting his daughter he lives in [facility] denies ANY h/o CAD / heart disease denies ANY exertional CP or dyspnea at baseline Review of Systems Review of Systems: gen - no fevers/chills; ate well today cv - no chest pain, no orthopnea pulm - no cough or congestion GI - no pain Physical Exam Physical Exam: gen - NAD, pleasant ent - hearing impaired; MMM neck - no JVD heart - RRR, s1 s2, no murmur lungs - CTA b/l abd - soft NT ND BS+ ext - no edema, pulses 2+ b/l Results & Data Results & Data ([facility]) Vital Signs (Past 12 Hours) Vital Signs Temp Pulse Pulse Resp BP Pulse Ox O2 Del Method 02/09/22 14:53 72 02/09/22 11:36 36.4 C L 71 18 116/67 96 Room Air Laboratory Results pancytopenia (mild) WBC 2 BMP wnl echo pending.... PG Care Time/CCT Total # of Minutes Spent Total Time Spent with Patient: Total time spent is greater than 50% in coordination of care (as documented) at patient's floor/unit and/or counseling patient: Coding Level of Care Code 15469 Subseq Hosp Care Lvl 2 Diagnoses COVID U07.1 Pancytopenia D61.818 Elevated troponin R77.8 AFTAB (acute kidney injury) N17.9 BPH (benign prostatic hyperplasia) N40.0 Hyperlipidemia E78.5
[2022-02-10] MEDS: ENOXAPARIN INJ 40 MG/0.4 ML SYR SQ SCH (07:41)
[2022-02-10] MEDS: DOXAZosin MESYLATE TAB 2 MG TAB PO SCH (07:43)
[2022-02-10] MEDS: FINASTERIDE 5 MG TAB PO SCH (07:43)
[2022-02-10] MEDS: ATORVASTATIN 20 MG TAB PO SCH (07:43)
[2022-02-10 08:23] LABS: Estimated Average Glucose 120 mg/dl; Hemoglobin A1C 5.8 % (4.5-5.6)
[2022-02-10 08:23] LABS: Hematocrit (blood only) 38.6 % (40.1-51.0); Hemoglobin 12.8 g/dl (14.0-18.0); Mean Platelet Volume 10.2 fL (9.4-12.4); Platelet Count 112 K/uL (130-400); White Blood Count 2.04 K/ul (4.8-10.8)
[2022-02-10 08:51] LABS: BUN Creatinine Ratio 14.7 (10-20); Calcium 8.3 mg/dl (8.5-10.1); Creatinine Clr Calc Pharmacy 53.2 ml/min; Est GFR (African American) 77.3 ml/min; Est GFR (Non-African American) 66.7 ml/min; Potassium 3.8 mmol/L (3.5-5.1)
[2022-02-10 10:00] LABS: Basophils # (auto) 0.02 K/uL (0-0.2); Eosinophils # (auto) 0.01 K/uL (0-0.50); Eosinophils % (auto) 0.5 %; Lymphocytes # (auto) 1.22 K/uL (1.2-3.4); Lymphocytes % (auto) 59.8 %; Mean Corpuscular Hemoglobin 30.4 pg (25.0-34.0); Mean Corpuscular Hgb Conc 33.2 g/dL (32.0-36.0); Mean Corpuscular Volume 91.7 fL (80.0-100.0); Monocytes # (auto) 0.32 K/uL (0.24-0.82); Monocytes % (auto) 15.7 %; Neutrophils # (auto) 0.47 K/uL (1.4-6.5); RDW Standard Deviation 43.6 fL (36.4-46.3); Red Blood Count 4.21 M/uL (4.63-6.08)
--- NOTE | 2022-02-10 13:30 | XCELERA ---
[id number]
--- NOTE | 2022-02-10 17:59 | Discharge Summary ---
Date of Service date of admission - February 08, 2022 date of discharge - February 10, 2022 Admission HPI Per Admitting Provider Colt Kaminski is an 86-year-old male with a past medical history significant for BPH and hyperlipidemia, who is presenting today with generalized weakness ongoing for the past 2 days. History collected with the assistance of virtual paper mill manager, as well as daughter at bedside who does speak [place]ian and translates for her father. Patient is actually a [place] resident visiting, is Azeri-speaking and unable to provide much in the way of past medical history. His was hospitalized at our facility yesterday, 02/07 with COVID-19 infection. He has been feeling generally weak over the past 2 days, specifically in his knees as if they would give out on him, although has not had any falls at home. He has not had any fevers, chest pain, cough, shortness of breath, syncope, presyncope, dizziness, lightheadedness, diaphoresis, abdominal pain, nausea, vomiting, diarrhea. He is doing his best to stay hydrated and to eat. He is vaccinated x2 with Pfizer booster in May 2021. His tested positive for the first time yesterday, and today he is positive.No home tests prior to ED presentation. In ED, he presents tachycardic with HR 102, initially borderline hypotensive 90/50, after IVF@133/59, SPO2 90% on room air, afebrile here. Labs significant for pancytopenia, WBC 2.2 with decreased neutrophil count 0.82, RBC 2.91, Hgb 12.1, PLTs 111. Creatinine 1.21, no baseline labs for reference. Calcium mildly low at 8.3, otherwise no electrolyte abnormalities. Initial hsTrop 26.8, repeat 26.7. COVID-positive. CXR with bibasilar interstitial thickening which may be due to vascular crowding from the low lung volumes or a low-grade interstitial pneumonitis. He will be admitted for symptomatic treatment of his COVID-19 infection, on telemetry unit given his mildly elevated troponin with LBBB seen on EKG with no prior EKGs for reference. Attempts are being made to collect basic PMH. Principal Diagnosis 1. COVID-19 infection 2. Leukopenia 2nd to COVID-19 3. Thrombocytopenia 2nd to COVID-19 4. LBBB - chronic, normal echocardiogram Discharge Exam gen - NAD, pleasant ent - hearing impaired; MMM neck - no JVD heart - RRR, s1 s2, no murmur lungs - CTA b/l abd - soft NT ND BS+ ext - no edema, pulses 2+ b/l Discharge Data Allergies Allergy/AdvReac Type Severity Reaction Status Date / Time No Known Allergies Allergy Verified 02/08/22 15:43 Procedures Performed Echocardiogram - * EF 60-65% * mild LVH * septal motion consistent with bundle branch block * no regional wall motion abnormalities * no significant valvular abnormalities Ordered Studies Chest X-Ray 02/08/22 12:19 XR chest 1V portable HISTORY: Fever COMPARISON: None. FINDINGS: No pneumothorax. No pleural effusions. The heart is normal in size. The upper lung zones are clear. There is patchy interstitial thickening at the lung bases. There are low lung volumes. No evidence for pulmonary edema. IMPRESSION: Bibasilar interstitial thickening which may be due to vascular crowding from the low lung volumes or a low-grade interstitial pneumonitis. ACT 112: Negative or not required by law. Electronically signed by: Christiano Beltran M.D. 02/08/2022 1:[address] 02/08/22 15:02 CT chest diagnostic wo con CT DOSE: 325.52 mGycm HISTORY: fever, COVID-19, borderline hypoxic TECHNIQUE: Multiaxial CT images of the chest were performed without contrast. A dose lowering technique was utilized adhering to the principles of ALARA. COMPARISON: None. FINDINGS: The central airways are patent. No pneumothorax. Mild respiratory motion artifact. Mild dependent changes noted at the lung bases. Otherwise, no focal lung consolidations to suggest pneumonia. No evidence for pulmonary edema. There are few scattered subcentimeter indeterminate pulmonary nodules with the largest in the left upper lobe on image 69 measuring 4 mm. No suspicious lytic or blastic osseous lesions. Mild bilateral gynecomastia most pronounced on the left. Limited views of the upper abdomen demonstrate a normal liver, spleen, and adrenal glands. Normal esophagus. There appear to be trace bilateral pleural effusions. No pericardial effusion. The heart is mildly enlarged. Normal caliber thoracic aorta. IMPRESSION: 1. No focal lung consolidations to suggest pneumonia. 2. Trace bilateral pleural effusions. 3. Mild cardiomegaly. 4. A few scattered subcentimeter indeterminate pulmonary nodules measure up to 4 mm. Please refer to below summary of Fleischner criteria recommendations for follow- up of incidental CT nodules (Aditya Reardon, Guidelines for management of small pulmonary nodules detected on CT scans: A statement from the Fleischner Society, Radiology 237: [phone].) SOLID NODULES Solitary nodule size: <6 mm * Low risk patients: no follow-up needed * high risk patients: optional CT at 12 months Solitary nodule size: 6-8 mm * Low risk patients: follow-up at 6-12 months, then consider further follow-up at 18-24 months * high risk patients: initial follow-up CT at 6-12 months and then at 18-24 months if no change Solitary nodule size: >8 mm * either low or high risk patients - consider follow-up CT at 3 months, and/or CT-PET, and/or biopsy Multiple nodules size: <6 mm * Low risk patients: no routine follow-up * high risk patients: optional CT at 12 months Multiple nodules size: 6-8 mm * Low risk patients: follow-up at 3-6 months, then consider further follow-up at 18-24 months * high risk patients: follow-up at 3-6 months, then at 18-24 months if no change Multiple nodules size: >8 mm * Low risk patients: follow-up at 3-6 months, then consider further follow-up at 18-24 months * high risk patients: follow-up at 3-6 months, then at 18-24 months if no change Note: newly detected indeterminate nodule in persons 35 years of age or older. * Low risk patients: minimal or absent history of smoking and/or other known risk factors * high risk patients: history of smoking or of other known risk factors (e.g. first degree relative with lung cancer, or exposure to asbestos, radon, uranium) * if a nodule up to 8 mm is partly solid or is ground glass further follow-up is required after 24 months to exclude possible slow growing adenocarcinoma (MARK) SUBSOLID NODULES Solitary pure ground-glass nodule * nodule size <6 mm - no CT follow-up required * nodule size >=6 mm - follow-up CT at 6-12 months, then every 2 years until 5 years Solitary part-solid nodule * nodule size <6 mm - no CT follow-up required * nodule size >=6 mm - follow-up CT at 3-6 months. If unchanged, and solid component remains <6 mm, then annual follow-up for 5 years Multiple subsolid nodules * nodule size <6 mm - follow-up CT at 3-6 months, consider further follow-up at 2 and 4 years if stable * nodule size >=6 mm - follow-up CT at 3-6 months, subsequent management based on the most suspicious nodule(s) ACT 112: Negative or not required by law. Electronically signed by: Christiano Beltran M.D. 02/08/2022 4:55 PM Hospital Course (1) COVID: Mainly flu-like symptoms - fatigue, weakness, etc. No pulmonary symptoms, no hypoxia, normal O2 sats while here. By report he had been vaccinated x 2 with booster May 2021. Did not meet criteria for Remdesivir or Dexamethasone during his stay. Did have pancytopenia during the stay - likely due to his COVID infection. He was eating/drinking well prior to discharge. He will need a repeat CBC with diff within a few days of discharge to ensure normalization of wbc count, platelets, etc. (2) Pancytopenia: 2nd COVID-19 infection. Typically self-limiting. Will need repeat CBC with diff within a few days of discharge to ensure normalization/stability. (3) Elevated troponin: 2nd to myocardial demand ischemia in the setting of his COVID infection. Peak high-sensitivity troponin was 26 (scantly elevated). Admission attending contacted his PCP in [place]. Per his PCP in [place] -- currently on a statin for high cholesterol; history of pulmonary hypertension and cardiomegaly; no h/o CAD. LBBB WAS seen on old EKGs in [place]. Echocardiogram showed preserved EF with no regional wall motion abnormalities. (4) AFTAB (acute kidney injury): Resolved. 2nd dehydration. Admission creatinine = 1.2 Discharge creatinine = 1 (5) BPH (benign prostatic hyperplasia): Continue finasteride 5 mg and doxazosin 2 mg daily. (6) Hyperlipidemia: Continue atorvastatin 20 mg daily. (7) Pulmonary nodules: multiple nodules seen on CT chest during this stay. largest nodule was 4mm in the left upper lobe. [id number] he should have a follow-up CT chest in 12 months based on guidelines. will refer to [facility] to ensure follow-up. Total Time Total Time Spent Total Time Spent (In Minutes): 40 Discharge Plan Discharge Items Patient Disposition: Home - Self-Care Reason For Visit: FEVER Discharge Diagnosis: 1. COVID-19 infection 2. Left bundle branch block - old/chronic (we received your records from [place] - this was seen in [place] as well) 3. Normal echocardiogram of the heart (normal heart function) 4. Low white blood cells and low platelets - due to COVID infection; follow-up needed - see below Activity: As commented below Activity Comment: light activities over the next 7-10 days Sexual Activity: Wait until after follow-up appointment Exercise/Sports: Wait until after follow-up appointment Non-emergency contact: Primary Care Provider Call non-emergency contact if: you have any medication questions and your symptoms worsen Follow-up/Referrals: PCP,NO [Primary Care Provider] - (please return to [facility] main entrance on 02/13/22 or Thursday02/14/22 for repeat blood work ) Diet: Heart Healthy Ambulatory Orders: Complete Blood Count with Diff (Routine) Timeframe: [id number] Location: Determined by Patient Ordered By: Naun Major Attending Provider Instructions: Mr Kaminski, You were hospitalized for COVID-19 infection. You had mild dehydration at time of admission which resolved with IV fluids. Your CT scan of the lungs did NOT show pneumonia. You underwent an echocardiogram (heart ultrasound) and this returned normal. We performed this because of something on your EKG called a "left bundle branch block" (LBBB for short). Sometimes the LBBB can be indicative of heart disease. However, the echocardiogram was normal. Further, we touched base with your family doctor in [place] and the LBBB is old/chronic. At this time there is nothing to do for the LBBB that we saw. Many viruses including COVID can suppress your bone marrow temporarily which causes the white blood cells and platelets to go down mildly. At this time there is nothing to do for this other than repeat your CBC blood count in a few days. Typically the counts will normalize over a week or two. Recommendations - 1. drink plenty of fluids each day at home 2. monitor your temperatures twice daily; you may have low-grade fever for another 2-3 days 3. focus on good rest and good nutrition as you recover from your illness (you may have another 7-10 days of feeling more tired than usual) 4. isolation - please return home and plan to spend the next few days resting and "isolating" from the general public to avoid spreading COVID to others. You can come out of isolation when the following happens - * no fevers for minimum of 24 hours, AND - * at least 10 days have passed since the start of your illness (your first day of symptoms was 02/06/22), AND - * you are improving Thus, hopefully you can come out of isolation this Thursday. 5. if you meet the criteria above to come out of isolation please come to [facility] this Thursday for a blood draw. We will repeat your CBC blood count at that time Follow-up - ideally a physician or provider checks on you - even virtual visit is fine -- in about 1 week Return to [facility] if - * you are short of breath * you have chest pain * you are concerned about dehydration * you have severe vomiting or diarrhea * any other concerns It was my pleasure to care for you! Please continue to feel better, Dr Corey Pending Studies at Discharge: No Stand-Alone Forms: My [facility], Smoking Cessation Medications and DC Order Prescriptions: Continued atorvastatin 20 mg Tablet 20 mg PO DAILY finasteride 5 mg Tablet 5 mg PO DAILY doxazosin 2 mg tablet 2 mg PO DAILY Discontinued Unknown Antibiotic 1 tab PO DIRECTED Rx Instructions: UNALBE TO VERIFY MED OR DOSE, PHARMACY UNABLE TO ASSIST. Discharge Orders: Discharge Order (Routine); Ordered 02/10/22 Ordered By: Naun Solares/Other Patient Handouts: Caring for Someone Who Has COVID-19, Disinfecting Your Home of COVID-19, How COVID-19 Spreads, COVID-19 Home Care, COVID 19 Flu Differences Admission Data Admit Date/Time: 02/08/22 15:14 Attending Provider: Naun Corey Admit Provider: Armin Elliott Primary Care Provider: PCP,NO Other Interventions: Discharge Summary Assessment (RN) Last Done: 02/10/22 18:12 Coding Level of Care Code 11832 OBS Care - Discharge Diagnoses COVID U07.1 Pancytopenia D61.818 Elevated troponin R77.8 AFTAB (acute kidney injury) N17.9 BPH (benign prostatic hyperplasia) N40.0 Hyperlipidemia E78.5 Pulmonary nodules R91.8
== END 2022-02-10 19:10 | disposition home or self-care (01) ==
LOC: 2W 12:02 → ED 12:02 → SUATTDRO 15:14 → 2W 17:38